=== PATIENT | female | born 1995 | race Caucasian/White ===

== ENCOUNTER 2017-03-14 16:53 | Emergency (ER) | payer SELFPAY ==
[2017-03-14] MEDS ORDERED: PREN-155 PO (17:08)
== END 2017-03-14 19:57 | disposition left against medical advice (07) ==
LOC: EMS 16:56
DX: O26.893 Other specified pregnancy related conditions, third trimester (principal); J02.9 Acute pharyngitis, unspecified; H92.03 Otalgia, bilateral; Z3A.31 31 weeks gestation of pregnancy